=== PATIENT | female | born 1970 | race Caucasian/White ===

== ENCOUNTER → 2016-11-25 | Outpatient (CLI) | payer BC ==
[2016-11-25 14:32] LABS: ALBUMIN/GLOBULIN RATIO 1.6 RATIO (1.1-2.2); ALKALINE PHOSPHATASE 66 U/L (38-126); ALT (SGPT) 30 U/L (9-52); ANION GAP 12 MEQ/L (5-15); AST (SGOT) 20 U/L (14-36); BUN/CREATININE RATIO 18 RATIO (6-26); CALCIUM 8.8 MG/DL (8.4-10.2); CHLORIDE 107 MEQ/L (98-107); CK - CPK 73 U/L (30-135); CO2 - CARBON DIOXIDE 26 MEQ/L (22-30); CREATININE 0.8 MG/DL (0.7-1.2); GLOMERULAR FILTRATION RATE 77; GLUCOSE 95 MG/DL (65-110); MAGNESIUM 2.2 MG/DL (1.6-2.3); PHOSPHORUS 2.4 MG/DL (2.5-4.5); POTASSIUM 3.7 MEQ/L (3.6-5); SODIUM 145 MEQ/L (134-144); TOTAL PROTEIN 6.5 G/DL (6.3-8.2)
== END ==
LOC: LAB 13:46
PROVIDERS: ATTEND Nurse Practitioner Acute Care
DX: E27.40 Unspecified adrenocortical insufficiency (principal)
CPT/HCPCS: 36415; 80069; 82088; 82550; 82553; 82626; 83735; 84244; 84484